=== PATIENT | female | born 1965 | race Caucasian/White ===

== ENCOUNTER 2021-02-21 12:33 | Inpatient (IN) | payer MEDICAID, MEDICARE, OTHER ==
[2021-02-21] MEDS ORDERED: Ketorolac Tromethamine 30 MG/ML VIAL ONE (13:02)
[2021-02-21 13:26] LABS: #Basophils 0.1 thou/uL (0.0-0.2); #Eosinphils 0.2 thou/uL (0.0-0.7); #Lymphocytes 2.7 thou/uL (1.20-3.40); #Monocytes 0.8 thou/uL (0.11-0.59); #Neutrophils 6.9 thou/uL (1.40-6.50); %Basophils 0.7 % (0.0-1.0); %Eosinophils 1.9 % (0.0-10.0); %Lymphocytes 25.2 % (21.0-51.0); %Monocytes 7.9 % (0.0-10.0); %Neutrophils 64.4 % (42.0-75.0); Hemoglobin 10.1 g/dL (12.0-16.0); Mean Corpuscular HGB CONC 31.3 g/dL (32.0-36.0); Mean Corpuscular Hemoglobin 25.7 pg (27.0-31.0); Mean Corpuscular Volume 82.3 fL (78.0-98.0); Mean Platelet Volume 7.2 fL (7.4-10.4); Platelet Count 474 thou/uL (130-400); RBC Distribution Width 17.9 % (11.5-14.5); Red Blood Cell (RBC) Count 3.91 mill/uL (4.20-5.40); White Blood Cell (WBC) Count 10.7 thou/uL (4.8-10.8)
[2021-02-21] MEDS ORDERED: Methocarbamol 500 MG TAB PO SCH (13:30)
[2021-02-21 13:48] LABS: ALT (SGPT) 11 U/L (8-55); AST (SGOT) 10 U/L (5-34); Albumin 3.9 g/dL (3.5-5.0); Alkaline Phosphatase 100 U/L (40-110); Anion Gap 11 mmol/L (10-20); BUN (Urea Nitrogen) 11 mg/dL (9.8-20.1); Bilirubin, Total 0.4 mg/dL (0.2-1.2); CK (CPK) 30 U/L (29-168); Calc. Creatinine Clearance 0 mL/min (70-130); Calcium 8.9 mg/dL (7.8-10.44); Carbon Dioxide 23 mmol/L (22-29); Chloride 108 mmol/L (98-107); Globulin 3.2 g/dL (2.4-3.5); Glucose 122 mg/dL (70-105); Lipase 14 U/L (8-78); Potassium 4.4 mmol/L (3.5-5.1); Protein, Total 7.1 g/dL (6.0-8.3); Sodium 138 mmol/L (136-145)
[2021-02-21] MEDS ORDERED: Fentanyl 100 MCG/2 ML VIAL ONE (13:57)
[2021-02-21 17:13] LABS: Bilirubin Negative (Negative); Blood, Urine Negative (Negative); Clarity Clear (Clear); Glucose, Urine (Dipstick) Normal (Negative); Ketone, Urine Negative (Negative); Leukocyte Negative Leu/uL (Negative); Nitrite Negative (Negative); Protein, Urine (Dipstick) Negative (Neg-Trace); Specific Gravity, Urine 1.012 (1.002-1.036); Urobilinogen Normal mg/dL (Less than 2); pH, Urine 6.5 (5.0-9.0)
[2021-02-21] MEDS ORDERED: Morphine 4 MG/ML VIAL ONE (17:58)
[2021-02-21] MEDS ORDERED: Ondansetron PF 4 MG/2 ML Vial ONE (17:58)
[2021-02-21] MEDS ORDERED: Bisacodyl 5 MG TAB PO PRN (21:04)
[2021-02-21] MEDS ORDERED: Senokot S 8.6-50 MG TAB PO PRN (21:04)
[2021-02-21] MEDS ORDERED: Ondansetron PF 4 MG/2 ML Vial IVP PRN (21:04)
[2021-02-21] MEDS ORDERED: Acetaminophen 325 MG TAB PO PRN (21:04)
[2021-02-21] MEDS ORDERED: Melatonin 3 MG TAB PO PRN (21:07)
[2021-02-21] MEDS ORDERED: Enoxaparin Sodium 40 MG/0.4 ML SYRINGE SC SCH (21:15)
[2021-02-21] MEDS: HYDROcodone/Acetaminophen 10/325 mg Tablet PO PRN (21:49)
[2021-02-22] MEDS ORDERED: Methocarbamol 500 MG TAB PO PRN (01:43)
[2021-02-22] MEDS ORDERED: Dicyclomine 10 MG CAP PO PRN (01:43)
[2021-02-22] MEDS: HYDROcodone/Acetaminophen 10/325 mg Tablet PO PRN ×4 (03:48→22:10)
[2021-02-22] MEDS ORDERED: Sodium Chloride 0.9% 500 ML IV SCH (04:30)
[2021-02-22] MEDS: Levothyroxine Sodium 100 MCG TAB PO SCH (05:33)
[2021-02-22 06:48] LABS: #Basophils 0.1 thou/uL (0.0-0.2); #Eosinphils 0.1 thou/uL (0.0-0.7); #Lymphocytes 2.3 thou/uL (1.20-3.40); #Monocytes 0.6 thou/uL (0.11-0.59); #Neutrophils 5.2 thou/uL (1.40-6.50); %Basophils 0.8 % (0.0-1.0); %Eosinophils 1.8 % (0.0-10.0); %Lymphocytes 27.6 % (21.0-51.0); %Monocytes 6.8 % (0.0-10.0); %Neutrophils 63.1 % (42.0-75.0); Hemoglobin 9.9 g/dL (12.0-16.0); Mean Corpuscular HGB CONC 30.7 g/dL (32.0-36.0); Mean Corpuscular Hemoglobin 25.4 pg (27.0-31.0); Mean Platelet Volume 7.4 fL (7.4-10.4); Platelet Count 430 thou/uL (130-400); RBC Distribution Width 17.8 % (11.5-14.5); Red Blood Cell (RBC) Count 3.87 mill/uL (4.20-5.40); White Blood Cell (WBC) Count 8.3 thou/uL (4.8-10.8)
[2021-02-22 07:13] LABS: ALT (SGPT) 11 U/L (8-55); AST (SGOT) 10 U/L (5-34); Albumin 3.8 g/dL (3.5-5.0); Alkaline Phosphatase 107 U/L (40-110); Anion Gap 11 mmol/L (10-20); BUN (Urea Nitrogen) 13 mg/dL (9.8-20.1); Bilirubin, Total 0.3 mg/dL (0.2-1.2); Calc. Creatinine Clearance 110 mL/min (70-130); Calcium 8.5 mg/dL (7.8-10.44); Carbon Dioxide 23 mmol/L (22-29); Chloride 109 mmol/L (98-107); Globulin 2.6 g/dL (2.4-3.5); Glucose 112 mg/dL (70-105); Potassium 4.4 mmol/L (3.5-5.1); Protein, Total 6.4 g/dL (6.0-8.3); Sodium 139 mmol/L (136-145)
[2021-02-22] MEDS ORDERED: clonazePAM 1 MG TAB PO SCH (09:00)
[2021-02-22] MEDS ORDERED: cloNIDine 0.2 MG TAB PO SCH (09:00)
[2021-02-22] MEDS: Aspirin 81 mg Enteric Coated Tablet PO SCH (09:00)
[2021-02-22] MEDS: Amiodarone 200 MG TAB PO SCH (09:00)
[2021-02-22] MEDS ORDERED: Famotidine/PF 20 mg/2ml Vial SLOW IVP SCH (09:00)
[2021-02-22] MEDS: Clopidogrel Bisulfate 75 MG TAB PO SCH (09:00)
[2021-02-22] MEDS: Rivaroxaban 10 MG TAB PO SCH (09:00)
[2021-02-22] MEDS ORDERED: Enoxaparin Sodium 40 MG/0.4 ML SYRINGE SC SCH (09:00)
[2021-02-22] MEDS: clonazePAM 1 MG TAB PO PRN ×2 (09:01→22:50)
[2021-02-22 12:19] LABS: SARS-CoV-2 PCR by NAA Not Detected (NotDetected)
[2021-02-22] MEDS ORDERED: Sodium Chloride 0.9% 1,000 ML IV SCH (13:30)
[2021-02-22] MEDS: Atorvastatin Calcium 40 MG TAB PO SCH (21:05)
[2021-02-22] MEDS: Temazepam 15 MG CAP PO SCH (21:05)
[2021-02-23] MEDS: HYDROcodone/Acetaminophen 10/325 mg Tablet PO PRN ×4 (03:45→16:39)
[2021-02-23] MEDS: Levothyroxine Sodium 100 MCG TAB PO SCH (05:20)
[2021-02-23] MEDS: Rivaroxaban 10 MG TAB PO SCH (08:19)
[2021-02-23] MEDS: Aspirin 81 mg Enteric Coated Tablet PO SCH (08:19)
[2021-02-23] MEDS: Clopidogrel Bisulfate 75 MG TAB PO SCH (08:20)
[2021-02-23] MEDS: Amiodarone 200 MG TAB PO SCH (08:20)
[2021-02-23] MEDS: clonazePAM 1 MG TAB PO PRN (08:25)
[2021-02-23] MEDS ORDERED: Morphine 4 MG/ML VIAL SLOW IVP SCH (14:00)
[2021-02-23] MEDS: Lidocaine 5% Patch TD SCH (14:34)
[2021-02-23] MEDS ORDERED: Gabapentin 100 MG CAP PO SCH (15:00)
[2021-02-23] MEDS: Methocarbamol 500 MG TAB PO PRN (16:38)
[2021-02-23] MEDS: Morphine 4 MG/ML VIAL SLOW IVP PRN ×2 (18:39→21:27)
[2021-02-23] MEDS: Atorvastatin Calcium 40 MG TAB PO SCH (21:20)
[2021-02-23] MEDS: clonazePAM 1 MG TAB PO SCH (21:20)
[2021-02-23] MEDS: Temazepam 15 MG CAP PO SCH (21:22)
[2021-02-24] MEDS: Morphine 4 MG/ML VIAL SLOW IVP PRN ×5 (01:58→21:05)
[2021-02-24] MEDS: Transdermal Patch Removal TOP SCH (04:36)
[2021-02-24] MEDS: Levothyroxine Sodium 100 MCG TAB PO SCH (05:28)
[2021-02-24] MEDS: clonazePAM 1 MG TAB PO SCH ×2 (08:05→21:05)
[2021-02-24] MEDS: Clopidogrel Bisulfate 75 MG TAB PO SCH (08:05)
[2021-02-24] MEDS: Rivaroxaban 10 MG TAB PO SCH (08:05)
[2021-02-24] MEDS: Aspirin 81 mg Enteric Coated Tablet PO SCH (08:05)
[2021-02-24] MEDS: Amiodarone 200 MG TAB PO SCH (08:05)
[2021-02-24] MEDS ORDERED: FLU VACC QS2021-22(6MOS UP)/PF 60 MCG/0.5 ML SYRINGE IM ONE (09:00)
[2021-02-24] MEDS: HYDROcodone/Acetaminophen 10/325 mg Tablet PO PRN ×2 (09:46→14:39)
[2021-02-24] MEDS: Lidocaine 5% Patch TD SCH (14:40)
[2021-02-24] MEDS: Temazepam 15 MG CAP PO SCH (21:05)
[2021-02-24] MEDS: Atorvastatin Calcium 40 MG TAB PO SCH (21:05)
[2021-02-25] MEDS: Morphine 4 MG/ML VIAL SLOW IVP PRN ×5 (01:35→21:10)
[2021-02-25] MEDS: Transdermal Patch Removal TOP SCH (04:58)
[2021-02-25] MEDS: Levothyroxine Sodium 100 MCG TAB PO SCH (05:19)
[2021-02-25] MEDS: HYDROcodone/Acetaminophen 5/325 mg Tablet PO PRN ×2 (07:57→13:46)
[2021-02-25] MEDS: Aspirin 81 mg Enteric Coated Tablet PO SCH (07:57)
[2021-02-25] MEDS: Amiodarone 200 MG TAB PO SCH (07:57)
[2021-02-25] MEDS: clonazePAM 1 MG TAB PO SCH ×2 (07:57→21:09)
[2021-02-25] MEDS: Clopidogrel Bisulfate 75 MG TAB PO SCH (07:57)
[2021-02-25] MEDS: Rivaroxaban 10 MG TAB PO SCH (11:28)
[2021-02-25 13:13] LABS: Hemoglobin 10.6 g/dL (12.0-16.0); Platelet Count 439 thou/uL (130-400)
[2021-02-25] MEDS: Methocarbamol 500 MG TAB PO PRN (17:14)
[2021-02-25] MEDS: Lidocaine 5% Patch TD SCH (17:15)
[2021-02-25] MEDS: Atorvastatin Calcium 40 MG TAB PO SCH (21:09)
[2021-02-25] MEDS: Temazepam 15 MG CAP PO SCH (21:10)
[2021-02-26] MEDS: Morphine 4 MG/ML VIAL SLOW IVP PRN ×3 (02:14→13:26)
[2021-02-26] MEDS: Transdermal Patch Removal TOP SCH (04:15)
[2021-02-26] MEDS: Levothyroxine Sodium 100 MCG TAB PO SCH (05:15)
[2021-02-26] MEDS: HYDROcodone/Acetaminophen 10/325 mg Tablet PO PRN (06:42)
[2021-02-26] MEDS: Amiodarone 200 MG TAB PO SCH (09:57)
[2021-02-26] MEDS: Rivaroxaban 10 MG TAB PO SCH (09:57)
[2021-02-26] MEDS: Aspirin 81 mg Enteric Coated Tablet PO SCH (09:57)
[2021-02-26] MEDS: Clopidogrel Bisulfate 75 MG TAB PO SCH (09:57)
[2021-02-26] MEDS: clonazePAM 1 MG TAB PO SCH (09:58)
[2021-02-26] MEDS: Methocarbamol 500 MG TAB PO PRN (09:58)
[2021-02-26 11:55] VITALS: BP 118/82; TEMP 98.1
== END 2021-02-26 15:30 | DRG 552 ==
LOC: ERS 12:33 → T4-B 18:09 → OBSVTOIN 02-23 13:48
PROVIDERS: ADMIT Internal Medicine; ATTEND Family Medicine
DX: M54.16 Radiculopathy, lumbar region (principal); I48.20 Chronic atrial fibrillation, unspecified; M48.061 Spinal stenosis, lumbar region without neurogenic claudication; Z20.822 Contact with and (suspected) exposure to COVID-19; I11.0 Hypertensive heart disease with heart failure; E78.5 Hyperlipidemia, unspecified; K58.9 Irritable bowel syndrome, unspecified; I50.9 Heart failure, unspecified; F41.9 Anxiety disorder, unspecified; F31.9 Bipolar disorder, unspecified; E03.9 Hypothyroidism, unspecified; Z88.0 Allergy status to penicillin; Z88.1 Allergy status to other antibiotic agents; Z88.8 Allergy status to other drugs, medicaments and biological substances; Z79.82 Long term (current) use of aspirin; Z79.899 Other long term (current) drug therapy; Z79.890 Hormone replacement therapy; Z95.0 Presence of cardiac pacemaker; Z87.891 Personal history of nicotine dependence; S32.010G Wedge compression fracture of first lumbar vertebra, subsequent encounter for fracture with delayed healing; Z91.81 History of falling
CPT/HCPCS: 36415; 70450; 71045; 72125; 72131; 80053; 81003; 82550; 83690; 85014; 85018; 85025; 85049; 90471; 90686; 96374; 96375; G0008; J1650; J1885; J2270; J2405; J3010; J7030; J7050; S0028; U0003; U0005